=== PATIENT | male | born 1950 | race Two or more races ===

== ENCOUNTER 2019-09-05 08:54 | Emergency (ER) | payer OTHER ==
[~2019-09-05] VITALS: Ht 182.9 cm; Wt 86.2 kg
[2019-09-05] MEDS ORDERED: AMLODIPINE BESYL5 MG (09:15)
[2019-09-05] MEDS ORDERED: INDAPAMIDE2.5 MG (09:16)
[2019-09-05] MEDS ORDERED: VENLAFAXINE HCL75 M2 (09:16)
== END 2019-09-05 12:12 | disposition home or self-care (01) ==
LOC: ER 08:54
DX: K52.89 Other specified noninfective gastroenteritis and colitis (principal)

== ENCOUNTER 2021-01-27 08:29 | Emergency (ER) | payer OTHER ==
[~2021-01-27] VITALS: Ht 182.9 cm; Wt 78.9 kg
[~2021-01-27 08:29] MED LIST: AMLODIPINE BESYL5 MG; INDAPAMIDE2.5 MG; VENLAFAXINE HCL75 M2
[2021-01-27] MEDS ORDERED: RESTORIL30 MG PO (08:49)
[2021-01-27] MEDS ORDERED: SERTRALINE HCL50 MG PO (08:49)
[2021-01-27] MEDS ORDERED: LORAZEPAM1 MG PO (08:49)
== END 2021-01-27 10:50 | disposition home or self-care (01) ==
LOC: ER 08:29
DX: J32.8 Other chronic sinusitis (principal); K29.60 Other gastritis without bleeding

== ENCOUNTER 2021-05-16 09:42 | Emergency (ER) | payer OTHER ==
[~2021-05-16] VITALS: Ht 165.1 cm; Wt 72.6 kg
[~2021-05-16 09:42] MED LIST changes: +LORAZEPAM1 MG PO; +RESTORIL30 MG PO; +SERTRALINE HCL50 MG PO
[2021-05-16] MEDS ORDERED: AVAPRO300 MG (09:51)
== END 2021-05-16 11:53 | disposition home or self-care (01) ==
LOC: ER 09:42
DX: K29.60 Other gastritis without bleeding (principal)

== ENCOUNTER 2023-09-09 08:21 | Outpatient (CLI) | payer OTHER ==
[~2023-09-09 08:21] MED LIST changes: +AVAPRO300 MG
== END 2023-09-09 08:27 | disposition home or self-care (01) ==
LOC: RX STUDY 08:21
DX: R13.14 Dysphagia, pharyngoesophageal phase (principal)

== ENCOUNTER 2024-03-05 16:51 | Inpatient (IN) | payer OTHER ==
[~2024-03-05] VITALS: Ht 182.9 cm; Wt 77.1 kg
[~2024-03-05 16:51] MED LIST changes: +REGLAN5 MG/5 ML PO
--- NOTE | 2024-03-05 17:10 | NUR ---
SE RECIBE PTE MASCULINO ALERTA Y ORIENTADO EN LAS JITENDRA ESFERAS REFIERE DOLOR ABADOMINAL. PTE ATENDIDO EN EL LORIE DE KIERA EN [facility] PARA ADMISION.
--- NOTE | 2024-03-05 17:25 | NUR ---
RN NEUMANN EDUCA A PTE SOBRE TX A RECIBIR EN EL AREA EL MISMO REFIERE ENTENDER. REALIZA ORDEN DE DR SANDERS EN TOTALIDAD. ENVIA MUESTRAS DE MANERA INMEDIATA Y COLOCA IVFLUID MARICEL ORDEN MEDICA.
[2024-03-05] MEDS ORDERED: PIPERACILLIN/TAZOBACTAM SODIUM 3.375 GM VIAL IV ONE (17:30)
[2024-03-05] MEDS ORDERED: 0.9 % SODIUM CHLORIDE 1,000 ML IV SCH ×2 (17:30→23:45)
[2024-03-05 17:52] LABS: HEMATOCRIT 37.7 % (39.0-48.0); HEMOGLOBIN 13.2 g/dL (13-16.00); MEAN CORPUSCULAR HEMOGLOBIN 31.8 pg (27.00-32.0); PLATELET COUNT 240 K/uL (150-450); RED BLOOD COUNT 4.14 M/uL (4.00-6.00); RED CELL DISTRIBUTION WIDTH 13.6 % (11.5-14.5)
[2024-03-05 18:21] LABS: BILIRUBIN TOTAL 5.96 mg/dL (0.3-1.2); CALCIUM 9.8 mg/dL (8.5-10.1); CREATININE SERUM 3.11 mg/dL (0.70-1.30); GFR 19.83; POTASSIUM 3.44 mEq/L (3.5-5.1)
[2024-03-05 22:37] LABS: BILIRUBIN TOTAL 5.61 mg/dL (0.3-1.2); BILIRUBIN,CONJUGATED 4.78 mg/dL (0.0-0.2); BILIRUBIN,UNCONJUGATED 0.83 mg/dL (0.0-0.6)
[2024-03-05] MEDS ORDERED: MEPERIDINE HCL/PF 25 MG/ML VIAL IM PRN (23:45)
[2024-03-05] MEDS ORDERED: ACETAMINOPHEN 500 MG GEL..CAP PO PRN (23:45)
[2024-03-05] MEDS ORDERED: ONDANSETRON HCL 4 MG in 0.9 % SODIUM CHLORIDE 50 ML IV PRN (23:45)
[2024-03-05] MEDS ORDERED: FAMOTIDINE/PF 20 MG in 0.9 % SODIUM CHLORIDE 8 ML IV PUSH SCH (23:48)
[2024-03-06] MEDS ORDERED: PIPERACILLIN/TAZOBACTAM SODIUM 2.25 GM in DEXTROSE 5 % IN WATER 50 ML IV SCH
[2024-03-06] MEDS ORDERED: IRBESARTAN 300 MG TABLET PO SCH (09:00)
[2024-03-06 10:44] LABS: ALBUMIN 3.4 gm/dL (3.4-5.0); BILIRUBIN TOTAL 5.72 mg/dL (0.3-1.2); TOTAL PROTEIN 6.7 gm/dL (6.4-8.2)
[2024-03-06 11:03] LABS: INR 1.31; PROTHROMBIN TIME 13.5 SECONDS (9.0-11.5)
[2024-03-06 11:04] LABS: BILIRUBIN,CONJUGATED 4.06 mg/dL (0.0-0.2); BILIRUBIN,UNCONJUGATED 1.66 mg/dL (0.0-0.6)
[2024-03-06 13:39] LABS: ALBUMIN 3.3 gm/dL (3.4-5.0); BILIRUBIN TOTAL 5.13 mg/dL (0.3-1.2); CALCIUM 9.7 mg/dL (8.5-10.1); GFR 12.95; GLOBULINA 3.2 G/DL (2.4-3.5); POTASSIUM 4.12 mEq/L (3.5-5.1); TOTAL PROTEIN 6.5 gm/dL (6.4-8.2)
[2024-03-06 13:44] LABS: CREATININE SERUM 4.5 mg/dL (0.70-1.30)
[2024-03-06] MEDS ORDERED: AMLODIPINE BESYLATE 5 MG TABLET PO SCH (17:00)
[2024-03-07 07:38] LABS: HEMATOCRIT 34.8 % (39.0-48.0); MEAN CELL VOLUME 90.2 fL (80.0-100.00); MEAN CORPUSCULAR HEMOGLOBIN 31.2 pg (27.00-32.0); MEAN CORPUSCULAR HGB CONC 34.6 g/dl (32.0-36.0); PLATELET COUNT 221 K/uL (150-450); RED BLOOD COUNT 3.86 M/uL (4.00-6.00); RED CELL DISTRIBUTION WIDTH 14.1 % (11.5-14.5)
[2024-03-07 08:26] LABS: ALBUMIN 2.6 gm/dL (3.4-5.0); BILIRUBIN TOTAL 3.3 mg/dL (0.3-1.2); GFR 9.82; GLOBULINA 2.8 G/DL (2.4-3.5); POTASSIUM 3.6 mEq/L (3.5-5.1); TOTAL PROTEIN 5.4 gm/dL (6.4-8.2)
[2024-03-07 09:40] LABS: CREATININE SERUM 5.72 mg/dL (0.70-1.30)
[2024-03-07 11:09] LABS: PH,URINE 5.5 (5.0-8.0); URINE APPEARANCE Cloudy; URINE BILIRRUBIN Moderate (NEGATIVE); URINE BLOOD Trace; URINE COLOR Dark Yellow; URINE LEUKOCYTE Small; URINE NITRATE Negative
[2024-03-07 11:13] LABS: URINE EPITHELIAL CELLS 106.8 uL (0.0-38.8); URINE RBC 50.6 uL (0.0-20.8)
[2024-03-07 11:28] LABS: URINE GLUCOSE 100 MG/DL (NEGATIVE); URINE PROTEIN 100 (NEGATIVE)
[2024-03-07 11:59] LABS: ABG PH 7.419 (7.35-7.45); ABG PO2 85.3 mmHg (80-100); ABG pCO2 36.5 mmHg (35-45); BASE EXCESS -0.9 mmol/l; BICARBONATE 23.1 mmol/l (23-25); SaO2 96.6 %; Tco2 24.2 mmol/l
[2024-03-07 14:27] LABS: allen test SATISFACTORY; o2 21 %; puncture site RADIAL RIGHT
[2024-03-07] MEDS ORDERED: PIPERACILLIN/TAZOBACTAM SODIUM 2.25 GM in DEXTROSE 5 % IN WATER 50 ML IV SCH (17:00)
[2024-03-07] MEDS ORDERED: MEROPENEM 500 MG/VIAL VIAL IV SCH (17:00)
[2024-03-07] MEDS ORDERED: NOREPINEPHRINE BITARTRATE 4 MG in DEXTROSE 5 % IN WATER 250 ML IV SCH (20:30)
[2024-03-08 06:45] LABS: HEMATOCRIT 26.9 % (39.0-48.0); MEAN CELL VOLUME 92.6 fL (80.0-100.00); MEAN CORPUSCULAR HGB CONC 33.6 g/dl (32.0-36.0); PLATELET COUNT 269 K/uL (150-450); RED CELL DISTRIBUTION WIDTH 14.1 % (11.5-14.5)
[2024-03-08 07:27] LABS: ALBUMIN 2.4 gm/dL (3.4-5.0); BILIRUBIN TOTAL 1.76 mg/dL (0.3-1.2); CALCIUM 8.1 mg/dL (8.5-10.1); GFR 7.49; GLOBULINA 2.9 G/DL (2.4-3.5); POTASSIUM 4.05 mEq/L (3.5-5.1); TOTAL PROTEIN 5.3 gm/dL (6.4-8.2)
[2024-03-08 08:09] LABS: CREATININE SERUM 7.23 mg/dL (0.70-1.30)
[2024-03-08] MEDS ORDERED: 0.9 % SODIUM CHLORIDE 500 ML IV ONE (12:45)
[2024-03-08] MEDS ORDERED: 0.9 % SODIUM CHLORIDE 1,000 ML IV SCH (17:30)
[2024-03-08] MEDS ORDERED: NOREPINEPHRINE BITARTRATE 8 MG in DEXTROSE 5 % IN WATER 250 ML IV SCH (20:30)
[2024-03-09 04:15] LABS: HEMATOCRIT 22.6 % (39.0-48.0); HEMOGLOBIN 7.8 g/dL (13-16.00); MEAN CELL VOLUME 89.4 fL (80.0-100.00); MEAN CORPUSCULAR HEMOGLOBIN 30.8 pg (27.00-32.0); MEAN CORPUSCULAR HGB CONC 34.5 g/dl (32.0-36.0); PLATELET COUNT 165 K/uL (150-450); RED BLOOD COUNT 2.53 M/uL (4.00-6.00); RED CELL DISTRIBUTION WIDTH 14.8 % (11.5-14.5)
[2024-03-09] MEDS ORDERED: MEROPENEM 500 MG/VIAL VIAL IV SCH (09:00)
[2024-03-09 10:24] LABS: HEMOGLOBIN 8.9 g/dL (13-16.00); MEAN CELL VOLUME 88.7 fL (80.0-100.00); MEAN CORPUSCULAR HEMOGLOBIN 30.3 pg (27.00-32.0); MEAN CORPUSCULAR HGB CONC 34.2 g/dl (32.0-36.0); PLATELET COUNT 166 K/uL (150-450); RED BLOOD COUNT 2.93 M/uL (4.00-6.00); RED CELL DISTRIBUTION WIDTH 15.1 % (11.5-14.5)
[2024-03-09] MEDS ORDERED: HEPARIN SODIUM,PORCINE 5,000 UNITS/ML VIAL IV NR (16:30)
[2024-03-10 07:24] LABS: ALBUMIN 2.2 gm/dL (3.4-5.0); BILIRUBIN TOTAL 1.44 mg/dL (0.3-1.2); CALCIUM 7.3 mg/dL (8.5-10.1); GFR 10.77; GLOBULINA 2.5 G/DL (2.4-3.5); POTASSIUM 3.28 mEq/L (3.5-5.1); TOTAL PROTEIN 4.7 gm/dL (6.4-8.2)
[2024-03-10 07:27] LABS: CREATININE SERUM 5.28 mg/dL (0.70-1.30)
[2024-03-10] MEDS ORDERED: HALOPERIDOL LACTATE 5 MG/ML AMPUL IM PRN (08:00)
[2024-03-10 08:04] LABS: HEMATOCRIT 25.9 % (39.0-48.0); MEAN CELL VOLUME 87.9 fL (80.0-100.00); MEAN CORPUSCULAR HGB CONC 34.2 g/dl (32.0-36.0); PLATELET COUNT 187 K/uL (150-450); RED BLOOD COUNT 2.95 M/uL (4.00-6.00); RED CELL DISTRIBUTION WIDTH 14.5 % (11.5-14.5)
[2024-03-10 08:24] LABS: HEMOGLOBIN 8.9 g/dL (13-16.00); MEAN CORPUSCULAR HEMOGLOBIN 30.1 pg (27.00-32.0)
[2024-03-10] MEDS ORDERED: POTASSIUM CHLORIDE 20MEQ/100ML H2O PB IV NR (13:15)
[2024-03-10] MEDS ORDERED: HEPARIN SODIUM,PORCINE 5,000 UNITS/ML VIAL IV NR (16:00)
[2024-03-11 02:28] LABS: HEMATOCRIT 30.4 % (39.0-48.0); HEMOGLOBIN 10.4 g/dL (13-16.00); MEAN CELL VOLUME 89.9 fL (80.0-100.00); MEAN CORPUSCULAR HEMOGLOBIN 30.6 pg (27.00-32.0); MEAN CORPUSCULAR HGB CONC 34.1 g/dl (32.0-36.0); PLATELET COUNT 201 K/uL (150-450); RED BLOOD COUNT 3.38 M/uL (4.00-6.00); RED CELL DISTRIBUTION WIDTH 14.2 % (11.5-14.5)
[2024-03-11 11:28] LABS: ALBUMIN 2.2 gm/dL (3.4-5.0); BILIRUBIN TOTAL 1.42 mg/dL (0.3-1.2); CALCIUM 7.8 mg/dL (8.5-10.1); GFR 11.74; GLOBULINA 2.7 G/DL (2.4-3.5); POTASSIUM 3.87 mEq/L (3.5-5.1); TOTAL PROTEIN 4.9 gm/dL (6.4-8.2)
[2024-03-11 11:53] LABS: CREATININE SERUM 4.9 mg/dL (0.70-1.30)
[2024-03-11] MEDS ORDERED: FUROsemide 40 MG/4 ML VIAL IV SCH (17:00)
[2024-03-11 21:45] LABS: INR 1.05; PARTIAL THROMBOPLASTIN TIME 31.2 SECONDS (22.0-34.0)
[2024-03-12 06:52] LABS: HEMATOCRIT 29.7 % (39.0-48.0); MEAN CELL VOLUME 89.5 fL (80.0-100.00); MEAN CORPUSCULAR HGB CONC 34.9 g/dl (32.0-36.0); PLATELET COUNT 278 K/uL (150-450); RED BLOOD COUNT 3.32 M/uL (4.00-6.00); RED CELL DISTRIBUTION WIDTH 14.2 % (11.5-14.5)
[2024-03-12 06:53] LABS: HEMOGLOBIN 10.3 g/dL (13-16.00)
[2024-03-12 07:28] LABS: ALBUMIN 2.3 gm/dL (3.4-5.0); BILIRUBIN TOTAL 1.27 mg/dL (0.3-1.2); CALCIUM 7.9 mg/dL (8.5-10.1); GFR 9.27; GLOBULINA 2.8 G/DL (2.4-3.5); POTASSIUM 3.53 mEq/L (3.5-5.1); TOTAL PROTEIN 5.1 gm/dL (6.4-8.2)
[2024-03-12 08:04] LABS: CREATININE SERUM 6.01 mg/dL (0.70-1.30)
[2024-03-12] MEDS ORDERED: PHYTONADIONE 10 MG/ML AMPUL IV SCH (09:00)
[2024-03-12] MEDS ORDERED: LIDOCAINE HCL 1% 10ML VIAL IJ NR (09:15)
[2024-03-12] MEDS ORDERED: NIFEDIPINE 30 MG TAB.SA.OSM PO SCH (12:00)
[2024-03-12] MEDS ORDERED: LACTOBACILLUS ACIDOPHILUS 1 CAP CAP PO SCH (17:00)
[2024-03-12] MEDS ORDERED: HEPARIN SODIUM,PORCINE 5,000 UNITS/ML VIAL IV NR (17:15)
[2024-03-12] MEDS ORDERED: hydrALAZINE HCL 25 MG TABLET PO STA (22:23)
[2024-03-12] MEDS ORDERED: hydrALAZINE HCL 25 MG TABLET PO SCH (22:24)
[2024-03-12] MEDS ORDERED: hydrALAZINE HCL 20 MG VIAL IV PRN (22:30)
[2024-03-13] MEDS ORDERED: GABAPENTIN 600 MG TABLET PO STA (06:57)
[2024-03-13 07:46] LABS: ALBUMIN 2.4 gm/dL (3.4-5.0); BILIRUBIN TOTAL 1.39 mg/dL (0.3-1.2); GFR 10.72; GLOBULINA 2.9 G/DL (2.4-3.5); POTASSIUM 3.33 mEq/L (3.5-5.1); TOTAL PROTEIN 5.3 gm/dL (6.4-8.2)
[2024-03-13 08:42] LABS: HEMATOCRIT 31.7 % (39.0-48.0); HEMOGLOBIN 10.8 g/dL (13-16.00); MEAN CELL VOLUME 89.7 fL (80.0-100.00); MEAN CORPUSCULAR HEMOGLOBIN 30.6 pg (27.00-32.0); MEAN CORPUSCULAR HGB CONC 34.1 g/dl (32.0-36.0); PLATELET COUNT 266 K/uL (150-450); RED BLOOD COUNT 3.54 M/uL (4.00-6.00)
[2024-03-13 08:48] LABS: CREATININE SERUM 5.3 mg/dL (0.70-1.30)
[2024-03-13] MEDS ORDERED: NIFEDIPINE 30 MG TAB.SA.OSM PO SCH (09:00)
[2024-03-13] MEDS ORDERED: RINGERS SOLUTION,LACTATED 1,000 ML IV SCH (18:30)
[2024-03-13] MEDS ORDERED: TRAMADOL HCL 50 MG TABLET PO SCH (21:23)
[2024-03-13] MEDS ORDERED: TRAMADOL HCL 50 MG TABLET PO STA (21:25)
[2024-03-14] MEDS ORDERED: ACETAMINOPHEN 500 MG GEL..CAP PO SCH (05:00)
[2024-03-14 08:54] LABS: ALBUMIN 2.2 gm/dL (3.4-5.0); CALCIUM 7.6 mg/dL (8.5-10.1); GFR 8.38; MAGNESIUM 2.1 mg/dL (1.8-2.4); PHOSPHOROUS 4.5 mg/dL (2.5-4.9); POTASSIUM 3.48 mEq/L (3.5-5.1)
[2024-03-14] MEDS ORDERED: NIFEDIPINE 30 MG TAB.SA.OSM PO SCH (09:00)
[2024-03-14 09:36] LABS: CREATININE SERUM 6.56 mg/dL (0.70-1.30)
[2024-03-15 07:05] LABS: ALBUMIN 2.1 gm/dL (3.4-5.0); BILIRUBIN TOTAL 0.93 mg/dL (0.3-1.2); CALCIUM 7.9 mg/dL (8.5-10.1); GFR 7.41; GLOBULINA 2.7 G/DL (2.4-3.5); PHOSPHOROUS 5.5 mg/dL (2.5-4.9); POTASSIUM 3.61 mEq/L (3.5-5.1); TOTAL PROTEIN 4.8 gm/dL (6.4-8.2)
[2024-03-15 07:42] LABS: CREATININE SERUM 7.3 mg/dL (0.70-1.30)
[2024-03-15] MEDS ORDERED: ENOXAPARIN SODIUM 40 MG/0.4 ML SYRINGE SUBCUTANEO STA (16:02)
[2024-03-15] MEDS ORDERED: MEROPENEM 500 MG/VIAL VIAL IV SCH (17:00)
[2024-03-15] MEDS ORDERED: HEPARIN SODIUM,PORCINE 5,000 UNITS/ML VIAL IV STA (19:35)
[2024-03-15] MEDS ORDERED: LACTULOSE 20 G/30 ML BLIST.PACK PO NR (20:00)
[2024-03-16 06:56] LABS: HEMATOCRIT 29.6 % (39.0-48.0); HEMOGLOBIN 10.3 g/dL (13-16.00); MEAN CELL VOLUME 89.4 fL (80.0-100.00); MEAN CORPUSCULAR HGB CONC 34.7 g/dl (32.0-36.0); PLATELET COUNT 372 K/uL (150-450); RED BLOOD COUNT 3.31 M/uL (4.00-6.00); RED CELL DISTRIBUTION WIDTH 14.8 % (11.5-14.5)
[2024-03-16 07:10] LABS: ALBUMIN 2.1 gm/dL (3.4-5.0); BILIRUBIN TOTAL 0.96 mg/dL (0.3-1.2); CALCIUM 7.8 mg/dL (8.5-10.1); GFR 8.72; GLOBULINA 2.9 G/DL (2.4-3.5); POTASSIUM 3.72 mEq/L (3.5-5.1)
[2024-03-16 07:14] LABS: CREATININE SERUM 6.34 mg/dL (0.70-1.30)
[2024-03-16] MEDS ORDERED: MORPHINE SULFATE 4 MG/ML CARTRIDGE IV PRN (09:00)
[2024-03-16] MEDS ORDERED: ENOXAPARIN SODIUM 40 MG/0.4 ML SYRINGE SUBCUTANEO SCH (09:00)
[2024-03-16] MEDS ORDERED: LACTULOSE 20 G/30 ML BLIST.PACK PO SCH (09:00)
[2024-03-17 08:03] LABS: HEMATOCRIT 30.7 % (39.0-48.0); HEMOGLOBIN 10.6 g/dL (13-16.00); MEAN CELL VOLUME 87.9 fL (80.0-100.00); MEAN CORPUSCULAR HEMOGLOBIN 30.4 pg (27.00-32.0); MEAN CORPUSCULAR HGB CONC 34.5 g/dl (32.0-36.0); PLATELET COUNT 459 K/uL (150-450); RED BLOOD COUNT 3.49 M/uL (4.00-6.00); RED CELL DISTRIBUTION WIDTH 14.8 % (11.5-14.5)
[2024-03-17 08:30] LABS: ALBUMIN 2.4 gm/dL (3.4-5.0); CALCIUM 8.4 mg/dL (8.5-10.1); GFR 7.38; PHOSPHOROUS 5.1 mg/dL (2.5-4.9); POTASSIUM 3.79 mEq/L (3.5-5.1)
[2024-03-17 08:58] LABS: CREATININE SERUM 7.32 mg/dL (0.70-1.30)
[2024-03-17] MEDS ORDERED: ENOXAPARIN SODIUM 80 MG/0.8 ML SYRINGE SUBCUTANEO SCH (09:00)
[2024-03-17] MEDS ORDERED: VANCOMYCIN HCL 125 MG/7.5 ML BLIST.PACK PO SCH (18:00)
[2024-03-18] MEDS ORDERED: TUBERCULIN,PURIF.PROT.DERIV. 5 TU/0.1 ML VIAL ID NR (08:15)
[2024-03-18] MEDS ORDERED: LIDOCAINE HCL 1% 10ML VIAL ONE (17:43)
[2024-03-18] MEDS ORDERED: HEPARIN SODIUM,PORCINE 500 UNITS/5 ML VIAL IV ONE (17:44)
[2024-03-18] MEDS ORDERED: BUPIVACAINE HCL/Mpf 0.5% 10ML VIAL ONE (17:44)
[2024-03-18] MEDS ORDERED: LIDOCAINE HCL 1%/EPINEPHRINE 20ML VIAL IJ ONE (17:44)
[2024-03-19 05:05] LABS: hav igm Negative (Negative); hcv Non Reactive (Non Reactive); hep b c Negative (Negative)
[2024-03-19] MEDS ORDERED: TUBERCULIN,PURIF.PROT.DERIV. 5 TU/0.1 ML VIAL ID NR (11:00)
[2024-03-19] MEDS ORDERED: HEPARIN SODIUM,PORCINE 5,000 UNITS/ML VIAL IV NR (13:45)
[2024-03-19] MEDS ORDERED: APIXABAN 5 MG TABLET PO SCH (17:00)
[2024-03-20 10:49] LABS: HEMATOCRIT 27.5 % (39.0-48.0); MEAN CELL VOLUME 90.2 fL (80.0-100.00); MEAN CORPUSCULAR HGB CONC 35.2 g/dl (32.0-36.0); PLATELET COUNT 315 K/uL (150-450); RED BLOOD COUNT 3.04 M/uL (4.00-6.00); RED CELL DISTRIBUTION WIDTH 14.3 % (11.5-14.5)
[2024-03-20 11:35] LABS: HEMOGLOBIN 9.7 g/dL (13-16.00); MEAN CORPUSCULAR HEMOGLOBIN 31.9 pg (27.00-32.0)
[2024-03-20 12:40] LABS: ALBUMIN 2.1 gm/dL (3.4-5.0); BILIRUBIN TOTAL 0.68 mg/dL (0.3-1.2); CALCIUM 7.8 mg/dL (8.5-10.1); CHOL HDL RATIO 2.9 (0-5.0); GLOBULINA 3.1 G/DL (2.4-3.5); POTASSIUM 3.42 mEq/L (3.5-5.1); TOTAL PROTEIN 5.2 gm/dL (6.4-8.2)
[2024-03-20 12:49] LABS: CREATININE SERUM 4.61 mg/dL (0.70-1.30); GFR 12.59
[2024-03-22] MEDS ORDERED: HEPARIN SODIUM,PORCINE 5,000 UNITS/ML VIAL IV STA (14:33)
[2024-03-22] MEDS ORDERED: REMDESIVIR 100 MG VIAL IV ONE (21:45)
[2024-03-23 15:30] LABS: ALBUMIN 2.5 gm/dL (3.4-5.0); CALCIUM 8.1 mg/dL (8.5-10.1); CREATININE SERUM 3.45 mg/dL (0.70-1.30); GFR 17.59; PHOSPHOROUS 3.4 mg/dL (2.5-4.9); POTASSIUM 3.44 mEq/L (3.5-5.1)
[2024-03-23] MEDS ORDERED: REMDESIVIR 100 MG VIAL IV SCH (21:00)
[2024-03-24] MEDS ORDERED: POTASSIUM BICARBONATE/CIT AC 25 MEQ TABLET.EFF PO SCH ×2 (09:00→17:00)
[2024-03-24 10:13] LABS: ALBUMIN 2.3 gm/dL (3.4-5.0); CALCIUM 8.6 mg/dL (8.5-10.1); CREATININE SERUM 3.46 mg/dL (0.70-1.30); GFR 17.53; PHOSPHOROUS 3.9 mg/dL (2.5-4.9); POTASSIUM 3.29 mEq/L (3.5-5.1)
[2024-03-24 10:16] LABS: ALBUMIN 2.3 gm/dL (3.4-5.0); BILIRUBIN TOTAL 0.57 mg/dL (0.3-1.2); BILIRUBIN,CONJUGATED 0.36 mg/dL (0.0-0.2); BILIRUBIN,UNCONJUGATED 0.21 mg/dL (0.0-0.6); TOTAL PROTEIN 5.6 gm/dL (6.4-8.2)
[2024-03-24 15:49] LABS: CREATININE SERUM 3.46 mg/dL (0.8-1.3)
[2024-03-26 09:30] LABS: HEMATOCRIT 25.7 % (39.0-48.0); HEMOGLOBIN 8.8 g/dL (13-16.00); MEAN CELL VOLUME 88.5 fL (80.0-100.00); MEAN CORPUSCULAR HEMOGLOBIN 30.2 pg (27.00-32.0); MEAN CORPUSCULAR HGB CONC 34.2 g/dl (32.0-36.0); PLATELET COUNT 344 K/uL (150-450); RED BLOOD COUNT 2.91 M/uL (4.00-6.00); RED CELL DISTRIBUTION WIDTH 14.7 % (11.5-14.5)
[2024-03-26 10:00] LABS: ALBUMIN 2.4 gm/dL (3.4-5.0); CALCIUM 8.3 mg/dL (8.5-10.1); CREATININE SERUM 3.41 mg/dL (0.70-1.30); GFR 17.83; PHOSPHOROUS 3.7 mg/dL (2.5-4.9); POTASSIUM 4.54 mEq/L (3.5-5.1)
[2024-03-27 18:38] LABS: HEMATOCRIT 33.1 % (39.0-48.0); HEMOGLOBIN 11.4 g/dL (13-16.00); MEAN CELL VOLUME 87.7 fL (80.0-100.00); MEAN CORPUSCULAR HEMOGLOBIN 30.1 pg (27.00-32.0); MEAN CORPUSCULAR HGB CONC 34.3 g/dl (32.0-36.0); PLATELET COUNT 375 K/uL (150-450); RED BLOOD COUNT 3.77 M/uL (4.00-6.00); RED CELL DISTRIBUTION WIDTH 14.7 % (11.5-14.5)
[2024-03-27 18:58] LABS: CALCIUM 8.8 mg/dL (8.5-10.1); CREATININE SERUM 3.38 mg/dL (0.70-1.30); GFR 18.01; POTASSIUM 4.48 mEq/L (3.5-5.1)
[2024-03-27 19:04] LABS: CREATININE SERUM 3.38 mg/dL (0.8-1.3)
[2024-03-29 07:58] LABS: CALCIUM 8.2 mg/dL (8.5-10.1); CREATININE SERUM 2.66 mg/dL (0.70-1.30); GFR 23.75; POTASSIUM 4.43 mEq/L (3.5-5.1)
[2024-03-30 13:35] LABS: HEMATOCRIT 28.1 % (39.0-48.0); HEMOGLOBIN 9.5 g/dL (13-16.00); MEAN CELL VOLUME 87.6 fL (80.0-100.00); MEAN CORPUSCULAR HEMOGLOBIN 29.6 pg (27.00-32.0); MEAN CORPUSCULAR HGB CONC 33.9 g/dl (32.0-36.0); PLATELET COUNT 299 K/uL (150-450); RED BLOOD COUNT 3.21 M/uL (4.00-6.00); RED CELL DISTRIBUTION WIDTH 14.4 % (11.5-14.5)
[2024-03-31 15:24] LABS: CREATINE CLEARANCE 22.6 ML/MIN (97-137); CREATININE SERUM 2.47 mg/dL (0.8-1.3)
[2024-04-01 15:16] LABS: HEMATOCRIT 27.8 % (39.0-48.0); HEMOGLOBIN 9.5 g/dL (13-16.00); MEAN CELL VOLUME 87.6 fL (80.0-100.00); MEAN CORPUSCULAR HGB CONC 34.2 g/dl (32.0-36.0); PLATELET COUNT 293 K/uL (150-450); RED BLOOD COUNT 3.18 M/uL (4.00-6.00); RED CELL DISTRIBUTION WIDTH 14.1 % (11.5-14.5)
[2024-04-03 21:13] LABS: HEMATOCRIT 31.4 % (39.0-48.0); HEMOGLOBIN 10.7 g/dL (13-16.00); MEAN CELL VOLUME 88.7 fL (80.0-100.00); MEAN CORPUSCULAR HEMOGLOBIN 30.3 pg (27.00-32.0); MEAN CORPUSCULAR HGB CONC 34.2 g/dl (32.0-36.0); PLATELET COUNT 343 K/uL (150-450); RED BLOOD COUNT 3.54 M/uL (4.00-6.00); RED CELL DISTRIBUTION WIDTH 13.6 % (11.5-14.5)
[2024-04-03 21:41] LABS: ALBUMIN 2.6 gm/dL (3.4-5.0); BILIRUBIN TOTAL 0.62 mg/dL (0.3-1.2); CALCIUM 8.5 mg/dL (8.5-10.1); CREATININE SERUM 2.27 mg/dL (0.70-1.30); GFR 28.52; GLOBULINA 3.7 G/DL (2.4-3.5); POTASSIUM 4.42 mEq/L (3.5-5.1); TOTAL PROTEIN 6.3 gm/dL (6.4-8.2)
[2024-04-03 23:26] LABS: URINE APPEARANCE Cloudy; URINE BILIRRUBIN Negative (NEGATIVE); URINE BLOOD Trace; URINE COLOR Yellow; URINE GLUCOSE Negative (NEGATIVE); URINE LEUKOCYTE Moderate; URINE NITRATE Negative; URINE PROTEIN 30 (NEGATIVE); URINE UROBILINOGEN 0.2 E.U./dl
[2024-04-03 23:29] LABS: URINE BACTERIA 444.7 uL (0.0-1933); URINE EPITHELIAL CELLS 8.9 uL (0.0-38.8); URINE WBC 314.1 uL (0.0-23.2)
[2024-04-03 23:47] LABS: URINE YEAST MANY /hpf
[2024-04-05] MEDS ORDERED: FLUCONAZOLE 100 MG TABLET PO SCH (12:00)
== END 2024-04-06 17:18 | DRG 414 ==
LOC: ER 16:51 → SURG 23:52 → MEDJ 23:52 → ICU 23:52 → O/R 03-09 10:42 → ICU 03-09 11:02 → SURG 03-11 20:48 → SURH 03-19 21:41
PROVIDERS: Emergency Medicine; General Practice; Internal Medicine; Internal Medicine Infectious Disease; Internal Medicine Nephrology; Student in an Organized Health Care Education/Training Program; Surgery; ADMIT Internal Medicine; ATTEND Internal Medicine
PROC: BF37ZZZ Magnetic Resonance Imaging (MRI) of Pancreas (ICD-10-PCS; 2024-03-05)
PROC: BW40ZZZ Ultrasonography of Abdomen (ICD-10-PCS; 2024-03-05)
PROC: 0FT40ZZ Resection of Gallbladder, Open Approach (ICD-10-PCS; principal; 2024-03-07 15:40)
PROC: 02HV33Z Insertion of Infusion Device into Superior Vena Cava, Percutaneous Approach (ICD-10-PCS; 2024-03-08)
PROC: 3E04329 Introduction of Other Anti-infective into Central Vein, Percutaneous Approach (ICD-10-PCS; 2024-03-08)
PROC: 30233N1 Transfusion of Nonautologous Red Blood Cells into Peripheral Vein, Percutaneous Approach (ICD-10-PCS; 2024-03-08)
PROC: 06HY33Z Insertion of Infusion Device into Lower Vein, Percutaneous Approach (ICD-10-PCS; 2024-03-09)
PROC: 5A1D70Z Performance of Urinary Filtration, Intermittent, Less than 6 Hours Per Day (ICD-10-PCS; 2024-03-09)
PROC: 5A1D70Z Performance of Urinary Filtration, Intermittent, Less than 6 Hours Per Day (ICD-10-PCS; 2024-03-10)
PROC: 4A12X4Z Monitoring of Cardiac Electrical Activity, External Approach (ICD-10-PCS; 2024-03-11)
PROC: B54BZZZ Ultrasonography of Right Lower Extremity Veins (ICD-10-PCS; 2024-03-15)
PROC: B34KZZZ Ultrasonography of Bilateral Upper Extremity Arteries (ICD-10-PCS; 2024-03-17)
PROC: 06PYX3Z Removal of Infusion Device from Lower Vein, External Approach (ICD-10-PCS; 2024-03-18)
PROC: 05HM33Z Insertion of Infusion Device into Right Internal Jugular Vein, Percutaneous Approach (ICD-10-PCS; 2024-03-18)
PROC: B543ZZA Ultrasonography of Right Jugular Veins, Guidance (ICD-10-PCS; 2024-03-18)
PROC: 8E0ZXY6 Isolation (ICD-10-PCS; 2024-03-20)
PROC: XW033E5 Introduction of Remdesivir Anti-infective into Peripheral Vein, Percutaneous Approach, New Technology Group 5 (ICD-10-PCS; 2024-03-22)
PROC: 05PYX3Z Removal of Infusion Device from Upper Vein, External Approach (ICD-10-PCS; 2024-04-02)
DX: K80.00 Calculus of gallbladder with acute cholecystitis without obstruction (principal); A41.9 Sepsis, unspecified organism; N18.6 End stage renal disease; R65.21 Severe sepsis with septic shock; U07.1 COVID-19; N17.9 Acute kidney failure, unspecified; E87.21 Acute metabolic acidosis; T82.868A Thrombosis due to vascular prosthetic devices, implants and grafts, initial encounter; I82.411 Acute embolism and thrombosis of right femoral vein; I12.0 Hypertensive chronic kidney disease with stage 5 chronic kidney disease or end stage renal disease; K82.A1 Gangrene of gallbladder in cholecystitis; E80.6 Other disorders of bilirubin metabolism; D63.1 Anemia in chronic kidney disease; I95.89 Other hypotension; R19.7 Diarrhea, unspecified; Y82.8 Other medical devices associated with adverse incidents; Y92.230 Patient room in hospital as the place of occurrence of the external cause; Z99.2 Dependence on renal dialysis

== ENCOUNTER 2025-01-21 09:26 | Emergency (ER) | payer OTHER ==
[~2025-01-21] VITALS: Ht 154.9 cm; Wt 72.6 kg
[2025-01-21] MEDS ORDERED: ELIQUIS5 MG (09:54)
[2025-01-21] MEDS ORDERED: JARDIANCE10 MG PO (09:54)
[2025-01-21] MEDS ORDERED: GABAPENTIN300 M2 PO (09:54)
[2025-01-21] MEDS ORDERED: FAMOTIDINE/PF 20 MG in 0.9 % SODIUM CHLORIDE 8 ML IV PUSH STA (10:23)
[2025-01-21] MEDS ORDERED: FAMOTIDINE/PF 20 MG/2 ML VIAL ONE (10:24)
[2025-01-21] MEDS ORDERED: BARIUM SULFATE 450 ML ORAL.SUSP PO ONE (10:25)
[2025-01-21 11:05] LABS: HEMATOCRIT 37.6 % (39.0-48.0); MEAN CORPUSCULAR HGB CONC 34.4 g/dl (32.0-36.0); PLATELET COUNT 249 K/uL (150-450); RED BLOOD COUNT 4.18 M/uL (4.00-6.00); RED CELL DISTRIBUTION WIDTH 13.2 % (11.5-14.5)
[2025-01-21 11:15] LABS: URINE APPEARANCE Clear; URINE BILIRRUBIN Negative (NEGATIVE); URINE BLOOD Trace; URINE COLOR Yellow; URINE KETONE Negative (NEGATIVE); URINE LEUKOCYTE Negative; URINE NITRATE Negative; URINE UROBILINOGEN 0.2 E.U./dl
[2025-01-21 11:20] LABS: URINE BACTERIA 14.6 uL (0.0-1933); URINE CAST 0.58 uL (0.0-1.40); URINE EPITHELIAL CELLS 2.5 uL (0.0-38.8); URINE GLUCOSE 500 MG/DL (NEGATIVE); URINE PROTEIN 100 (NEGATIVE); URINE RBC 19.1 uL (0.0-20.8); URINE WBC 11.2 uL (0.0-23.2)
[2025-01-21 11:37] LABS: ALBUMIN 4.1 gm/dL (3.4-5.0); BILIRUBIN TOTAL 1.02 mg/dL (0.3-1.2); CALCIUM 9.7 mg/dL (8.5-10.1); CREATININE SERUM 2.28 mg/dL (0.70-1.30); GFR 28.3; GLOBULINA 4.2 G/DL (2.4-3.5); POTASSIUM 4.18 mEq/L (3.5-5.1); TOTAL PROTEIN 8.3 gm/dL (6.4-8.2)
== END 2025-01-21 17:39 | disposition home or self-care (01) ==
LOC: ER 09:26
PROVIDERS: Emergency Medicine
DX: R10.13 Epigastric pain (principal); K21.9 Gastro-esophageal reflux disease without esophagitis; I49.8 Other specified cardiac arrhythmias; E11.9 Type 2 diabetes mellitus without complications; Z79.84 Long term (current) use of oral hypoglycemic drugs
CPT/HCPCS: 74177; 96365; 99284; J3490; Q9965